=== PATIENT | female | born 1975 | race Caucasian/White ===

== ENCOUNTER 2019-04-08 12:30 | Emergency (ER) | payer BC ==
[~2019-04-08] VITALS: Ht 157.5 cm; Wt 89.8 kg
[2019-04-08 13:04] LABS: BASOPHILS % (AUTO) 0.4 % (0-1); EOSINOPHILS # (AUTO) 0.1 X10'3 (0-0.9); EOSINOPHILS % (AUTO) 0.8 % (0-6); HEMOGLOBIN 14.5 g/dl (12.0-16.0); LYMPHOCYTES % (AUTO) 23.3 % (21-51); MEAN CORPUSCULAR HEMOGLOBIN 30.7 PG (27.0-31.0); MEAN CORPUSCULAR HGB CONC 33.9 g/dL (33.0-36.5); MEAN CORPUSCULAR VOLUME 90.6 FL (78-98); MEAN PLATELET VOLUME 9.5 FL (7.4-10.4); MONOCYTES # (AUTO) 0.5 X10'3 (0-0.9); NEUTROPHILS # (AUTO) 5.9 X10'3 (1.8-7.7); NEUTROPHILS % (AUTO) 69.5 % (42-75); PLATELET COUNT 254 X10'3 (140-440); RED BLOOD COUNT 4.74 X10'6 (4.20-5.60); RED CELL DISTRIBUTION WIDTH 13.3 % (11.5-14.5); WHITE BLOOD COUNT 8.5 X10'3 (4.5-11.0)
[2019-04-08 13:06] LABS: CLARITY,URINE CLEAR (Clear); COLOR,URINE YELLOW (Yellow); GLUCOSE, URINE NEGATIVE (Neg); KETONES,URINE NEGATIVE (Neg); LEUKOCYTE ESTERASE ,URINE NEGATIVE (Neg); NITRITES, URINE NEGATIVE (Neg); OCCULT BLOOD,URINE NEGATIVE (Neg); PH,URINE 6.5 (4.8-8.0); PROTEIN,URINE NEGATIVE (Neg); UA COLLECTION TYPE CLN CATCH MIDSTREAM; UROBILINOGEN,URINE 0.2 E.U/dL (0.2-1.0)
[2019-04-08 13:15] LABS: ALANINE AMINOTRANSFERASE 31 U/L (12-78); ALBUMIN 3.9 G/DL (3.4-5.0); ALBUMIN/GLOBULIN RATIO 1.1 (1.1-1.5); ALKALINE PHOSPHATASE 68 IU/L (46-116); ANION GAP 9 (8-16); ASPARTATE AMINO TRANSFERASE 22 U/L (10-37); BILIRUBIN,TOTAL 0.4 MG/DL (0.1-1.0); BLOOD UREA NITROGEN 13 MG/DL (7-18); BUN/CREATININE RATIO 18.1 (6.6-38.0); CALCIUM 8.4 MG/DL (8.5-10.1); CHLORIDE 102 MMOL/L (99-107); CREATININE 0.72 MG/DL (0.40-0.90); GLUCOSE 97 MG/DL (70-104); POTASSIUM 3.7 MMOL/L (3.5-5.1); SODIUM 137 MMOL/L (135-145); TOTAL CARBON DIOXIDE 26.1 MMOL/L (24-32); TOTAL PROTEIN 7.4 G/DL (6.4-8.2); eGFR 89 ML/MIN
[2019-04-08] MEDS ORDERED: ketorolac trometh inj. 60 MG/2 ML VIAL IM ONE (14:10)
[2019-04-08] MEDS ORDERED: BUTA-281 PO (15:17)
[2019-04-08 15:27] VITALS: BP 128/88
== END 2019-04-08 15:28 | disposition home or self-care (01) ==
LOC: ER 12:30
DX: R42 Dizziness and giddiness (principal); R51 Headache; Z90.49 Acquired absence of other specified parts of digestive tract; Z98.890 Other specified postprocedural states
CPT/HCPCS: 36415; 80053; 81003; 84484; 85025; 93005; 96372; 99284; J1885

== ENCOUNTER 2022-05-21 22:05 | Emergency (ER) | payer BC ==
[~2022-05-21] VITALS: Ht 160 cm; Wt 84.7 kg
[~2022-05-21 22:05] MED LIST: BUTA-281 PO
[2022-05-21 22:15] VITALS: BP 128/83
[2022-05-21 22:22] LABS: BASOPHILS % (AUTO) 0.4 % (0-1); EOSINOPHILS # (AUTO) 0.1 X10'3 (0-0.9); EOSINOPHILS % (AUTO) 0.8 % (0-6); HEMATOCRIT 44.1 % (35.0-45.0); LYMPHOCYTES # (AUTO) 1.8 X10'3 (1.1-4.8); LYMPHOCYTES % (AUTO) 17.6 % (21-51); MEAN CORPUSCULAR HEMOGLOBIN 30.7 PG (27.0-31.0); MEAN CORPUSCULAR HGB CONC 33.9 g/dL (33.0-36.5); MEAN CORPUSCULAR VOLUME 90.4 FL (78-98); MEAN PLATELET VOLUME 9.7 FL (7.4-10.4); MONOCYTES # (AUTO) 0.7 X10'3 (0-0.9); MONOCYTES % (AUTO) 6.9 % (2-12); NEUTROPHILS # (AUTO) 7.6 X10'3 (1.8-7.7); NEUTROPHILS % (AUTO) 74.3 % (42-75); PLATELET COUNT 282 X10'3 (140-440); RED BLOOD COUNT 4.87 X10'6 (4.20-5.60); WHITE BLOOD COUNT 10.2 X10'3 (4.5-11.0)
[2022-05-21 22:33] LABS: ALANINE AMINOTRANSFERASE 23 U/L (12-78); ALBUMIN 4.1 G/DL (3.4-5.0); ALBUMIN/GLOBULIN RATIO 1.3 (1.1-1.5); ALKALINE PHOSPHATASE 86 IU/L (46-116); ANION GAP 7 (8-16); ASPARTATE AMINO TRANSFERASE 16 U/L (10-37); BILIRUBIN,TOTAL 0.3 MG/DL (0.1-1.0); BLOOD UREA NITROGEN 16 MG/DL (7-18); CHLORIDE 102 MMOL/L (99-107); CREATININE 0.84 MG/DL (0.40-0.90); GLUCOSE 97 MG/DL (70-104); POTASSIUM 3.7 MMOL/L (3.5-5.1); SODIUM 139 MMOL/L (135-145); TOTAL CARBON DIOXIDE 29.6 MMOL/L (24-32); TOTAL PROTEIN 7.3 G/DL (6.4-8.2); eGFR 73 ML/MIN
[2022-05-21 22:41] LABS: MAGNESIUM 2.2 MG/DL (1.5-2.4)
== END 2022-05-22 02:39 | disposition left against medical advice (07) ==
LOC: ER 22:06
DX: R06.02 Shortness of breath (principal); R07.89 Other chest pain; Z53.21 Procedure and treatment not carried out due to patient leaving prior to being seen by health care provider
CPT/HCPCS: 36415; 71045; 80053; 83735; 83880; 84484; 85025; 93005

== ENCOUNTER 2025-02-05 03:44 | Emergency (ER) | payer BC ==
[~2025-02-05] VITALS: Ht 160 cm; Wt 70.0 kg
[~2025-02-05 03:44] MED LIST changes: +BUTA-245 PO; -BUTA-281 PO
[2025-02-05 03:54] VITALS: TEMP 97.4
--- NOTE | 2025-02-05 08:26 | Physician Documentation ---
History of Present Illness ~ Chief Complaint: Abnormal Stools Stated Complaint: FECAL WORMS Time Seen by MD: 08:12 Source: patient Mode of Arrival: POV, Ambulatory Exam Limitations: no limitations HPI Chief Complaint: Worms in stool Caveat: None Independent Historians: None History of Present Illness: Patient is a 50-year-old woman who comes in complaining of having some abdominal cramps for approximately a week. Patient noticed that she believes she has seen larva or worms in her stool. Patient also thought she salt some worms in her left eye. She states that she was seen three dimensional in the left eye and then she looked with a high definition magnifying glass or mirror and thought she saw some small microscopic worms in her left eye. Patient states that she has been to [facility] twice. First time she when she said she had left-sided body numbness. They did a head CT that was negative. Review of systems: All systems were reviewed and are negative except for what is indicated in the history of present illness. Past Medical History: None Past Surgical History: None Social History: No tobacco use, denies drug use, occasional alcohol use Medications: Reviewed as documented Nursing Notes Allergies: Reviewed as documented in Nursing Notes Medication Reconciliation Allergies: Coded Allergies: No Known Allergies (Unverified , 02/05/25) Scheduled PRN Butalb/Acetaminophen/Caffeine (Fioricet Tab), 1 EACH PO Q6H PRN for pain Past Medical History Past Medical History: No Pertinent History Past Surgical History: appendectomy, other Drug Use: none Lives In: Home Review of Systems All Other Systems at this time: Reviewed and Negative ROS Patient denies any other acute symptoms other than above. All other systems are negative Physical Exam Vital Signs: RN Vital Signs have been reviewed: Yes, Temperature: 97.4, Source: Temporal, Heart Rate: 70, Respiratory Rate: 16, BP: 120/77, Pulse Oximetry: 99, Weight: 70.000 Oxygen Flow Rate: 0 Pulse Oximetry Reflects: adequate oxygenation Physical Exam General Appearance: No distress, patient is sleeping, patient arousable HEENT: Normal OP, moist oral mucosa, PERRL, EOMI Neck: supple, normal ROM, trachea midline Pulmonary: No respiratory distress, CTA, BS equal Cardiac: RRR, no murmur, rub or gallop, GI: nondistended, soft, nontender, normal bowel sounds, no guarding, no rebound Rectal: No masses, no evidence of parasites are worms, no stool in the rectal vault, guaiac negative, controls appropriate. Extremities: normal ROM, no swelling, non-tender Skin: intact, dry, warm, no rashes Neuro: AAOx3, speech is clear, no focal motor weakness Psych: normal affect, good eye contact, no apparent hallucination, normal speech Progress Results/Orders Results/Orders Orders - MICKEY HODGSON MD Occult Bld Stool (02/05/25 08:56) Completed Orders - MICKEY HODGSON MD Cbc/Diff (02/05/25 08:20) CMP (02/05/25 08:20) Vital Signs 02/05/25 02/05/25 02/05/25 02/05/25 03:54 05:42 05:42 08:44 Temp 97.4 Pulse 98 70 69 Resp 18 16 18 15 B/P (MAP) 121/68 120/77 (91) 142/99 (113) Pulse Ox 100 99 100 O2 Flow Rate 0 0 02/05/25 10:08 Pulse 80 Resp 14 B/P (MAP) 122/78 Pulse Ox 100 Laboratory Tests Test 02/05/25 08:30 02/05/25 08:56 White Blood Count 5.5 Red Blood Count 4.48 Hemoglobin 13.4 Hematocrit 39.3 Mean Corpuscular Volume 87.7 Mean Corpuscular Hemoglobin 30.0 Mean Corpuscular Hemoglobin Concent 34.2 Red Cell Distribution Width 12.7 Platelet Count 318 Mean Platelet Volume 8.1 Neutrophils (%) (Auto) 55.0 Lymphocytes (%) (Auto) 35.3 Monocytes (%) (Auto) 7.6 Eosinophils (%) (Auto) 1.4 Basophils (%) (Auto) 0.7 Neutrophils # (Auto) 3.1 Lymphocytes # (Auto) 2.0 Monocytes # (Auto) 0.4 Eosinophils # (Auto) 0.1 Basophils # (Auto) 0.0 CBC Comment Sodium Level 141 Potassium Level 3.9 Chloride Level 105 Carbon Dioxide Level 31.3 Anion Gap 5 L Blood Urea Nitrogen 12 Creatinine 0.86 Estimated GFR/1.73 m2 70 BUN/Creatinine Ratio 14.0 Glucose Level 94 Calcium Level 8.6 Total Bilirubin 0.6 Aspartate Amino Transf (AST/SGOT) 14 Alanine Aminotransferase (ALT/SGPT) 22 Alkaline Phosphatase 65 Total Protein 6.4 Albumin 3.5 Globulin 2.9 Albumin/Globulin Ratio 1.2 Chemistry Comments Medical Decision Making Findings Differential diagnosis includes but is not limited to: Parasites, delusional parasitosis Laboratory data independent interpretation: CBC: Unremarkable CMP: Unremarkable Emergency department course/medical decision-making: Patient states that she has worms in her stool. Patient has a stool sample from two days ago that she refrigerated and showed to me. However I can not identify any clear parasites are stools. Patient is requested that she give us a fresh stool sample. Patient is unable to provide us with a stool sample. Patient states that she has had traveled to [place] 3 times a last six months. Patient has no evidence of eosinophilia on her CBC differential. Patient has no evidence of medical or surgical emergency. Patient is instructed to follow up with the primary care doctor to provide a stool specimen for evaluation. Patient is stable for discharge. Departure Time of Disposition: 09:51 Disposition: 01 HOME / SELF CARE / HOMELESS Impression: Primary Impression: Abdominal pain of unknown cause Condition: Stable Discharge Instructions: Abdominal Pain, Adult, [id number] Additional Instructions: FOLLOW UP WITH YOUR PRIMARY CARE DOCTOR. RETURN IF YOUR SYMPTOMS WORSEN. Referrals: [facility] Education Educated: Patient Educated regarding: diagnosis, treatment, need for follow up Signature Scribe Signature: NO SCRIBE Attestation: NO SCRIBE MICKEY HODGSON MD Feb 05, 2025 08:26
[2025-02-05 08:50] LABS: CREATININE 0.86 MG/DL (0.40-0.90); TOTAL CARBON DIOXIDE 31.3 MMOL/L (24-32); eCRCL 66 ML/MIN; eGFR 70 ML/MIN
[2025-02-05 08:51] LABS: MEAN PLATELET VOLUME 8.1 FL (7.4-10.4); RED CELL DISTRIBUTION WIDTH 12.7 % (11.5-14.5)
[2025-02-05 10:08] VITALS: BP 122/78; PULSE 80; RESP 14; O2SAT 100
[2025-02-05 11:15] LABS: OCCULT BLOOD STOOL NEGATIVE (Neg)
== END 2025-02-05 10:15 | disposition home or self-care (01) ==
LOC: ER 03:46
DX: R10.9 Unspecified abdominal pain (principal); Z90.49 Acquired absence of other specified parts of digestive tract
CPT/HCPCS: 36415; 80053; 82272; 85025; 99283

== ENCOUNTER 2025-03-05 16:51 | Emergency (ER) | payer BC ==
[~2025-03-05] VITALS: Ht 160 cm; Wt 61.9 kg
--- NOTE | 2025-03-05 16:59 | Physician Documentation ---
History of Present Illness Stated Complaint: ABDOMINAL PAIN [facility] [age] year female presents for lower abdominal pain. She tells me that over the past 3 days she has been having pain across her lower abdomen. She states it is on both sides, with no radiation to her upper abdomen or back. She denies any fevers, nausea or vomiting, or significant diarrhea. She has been a little bit constipated. She then tells me that she thinks that she has worms in her stool. She also tells me she has worms coming out of her face and mouth. She saw a black fly, out of her mouth. She tells me she has videos of this. Tells me she did have stool samples down about a week ago, but does not know the results yet. She has not had any abdominal imaging recently. She does report some vaginal discharge that she states is green. She did have a recent pelvic exam that showed possible cervical cancer. She thinks she may have been exposed to STI. Medication Reconciliation Allergies: Coded Allergies: No Known Allergies (Unverified , 03/05/25) Scheduled Albendazole (Albendazole), 400 MG PO ONCE Doxycycline Hyclate (Doxycycline Hyclate), 1 CAP PO Q12H Metronidazole* (Flagyl*), 1 TAB PO Q12H Scheduled PRN Butalb/Acetaminophen/Caffeine (Fioricet Tab), 1 EACH PO Q6H PRN for pain Past Medical History Past Medical History: No Pertinent History Past Surgical History: appendectomy, other Drug Use: none Lives In: Home Review of Systems ROS As stated above in the HPI, otherwise all systems are reviewed and negative. Constitutional: Denies: fever Gastrointestinal: Reports: abdominal pain, constipated; Denies: vomiting Physical Exam Physical Exam General: This is a anxious appearing middle-aged woman, son at bedside HEENT: Atraumatic, oropharynx is moist, no significant lesions in the mouth. The patient does have several pimple type lesions around her mouth on the face Heart: Mild tachycardic, appears regular Lungs: normal work of breathing, normal oxygen saturation on room air Abdomen: Soft, nondistended, mild discomfort on palpation across the lower abdomen, without rebound or guarding Neuro: Alert and oriented Psychiatric: Appears mildly anxious, but is cooperative. Progress EKG/XRAY/CT/US/VASC/MRI CT : Impression I personally interpreted the CT scan, and this shows constipation and abnormal enhancement of the uterus Medical Decision Making Additional information obtaine: old records Findings Patient was last seen in this emergency department on 02/05/2025 due to concern for fecal warmth. Labs were normal at that time. No urinalysis was done. Patient was diagnosed with parasitosis, delusional. Differential Dx:Considerations: Appendicitis, Bowel obstruction, Constipation, Diverticular disease, Inflammatory BD, Ovarian cyst/torsion, PID, Urinary tract infection Additional Comments The patient presents with 3 days of lower abdominal pain, along with reported worms in her stool and worms coming out of the skin on her face. 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 However, today she also reports lower abdominal pain. She later reports vaginal discharge and possible exposure to STI. Her laboratory testing is unremarkable. CT scan shows possible abnormality of the uterus. I was concerned for possible PID. I did recommend a pelvic exam, but she declined. Instead after shared decision-making conversation, we will treat her with antibiotics for pelvic inflammatory disease. She has follow up next week for further evaluation of her cervix and they can recheck her infection. At her request she was also given a dose of albendazole for possible parasites. There was no evidence of definite parasites, but this seems reasonable. Return precautions given. Departure Time of Disposition: 20:58 Disposition: HOME / SELF CARE / HOMELESS Impression: Primary Impression: PID (acute pelvic inflammatory disease) Condition: Stable Discharge Instructions: Pelvic Inflammatory Disease Referrals: NO PRIMARY CARE PROVIDER (PCP) Prescriptions Albendazole (Albendazole) 200 Mg Tablet 400 MG PO ONCE for 1 Day, #2 TAB 0 Refills Prov: NICOLE MARLEY MD 03/05/25 Doxycycline Hyclate (Doxycycline Hyclate) 100 Mg Capsule 1 CAP PO Q12H for 14 Days, #27 CAP Prov: NICOLE MARLEY MD 03/05/25 Metronidazole* (Flagyl*) 500 Mg Tablet 1 TAB PO Q12H for 14 Days, #27 TAB Prov: NICOLE MARLEY MD 03/05/25 Education Educated: Patient Educated regarding: diagnosis, treatment, need for follow up Signature Scribe Signature: x Attestation: The note accurately reflects work and decisions made by me.Irena Stover NP 03/05/25 16:59 IRENA ELLINGTON NP Mar 05, 2025 16:59 NICOLE MARLEY MD Mar 05, 2025 19:33
[2025-03-05] MEDS ORDERED: iohexol 300mg/ml 100ml inj. ONE (19:12)
[2025-03-05 19:15] LABS: MEAN PLATELET VOLUME 8.7 FL (7.4-10.4); RED CELL DISTRIBUTION WIDTH 13.1 % (11.5-14.5)
[2025-03-05 19:32] LABS: CREATININE 0.70 MG/DL (0.40-0.90); TOTAL CARBON DIOXIDE 31.8 MMOL/L (24-32); eCRCL 81 ML/MIN; eGFR 89 ML/MIN
--- NOTE | 2025-03-05 20:30 | RADIOLOGY REPORT ---
Exam: CT CT ABDOMEN PELVIS W/ IV CONTRAST History: lower abd pain Comparison Study: None TECHNIQUE: Multidetector CT of the abdomen and pelvis with IV contrast. Axial, coronal and sagittal multiplanar reformats were obtained from the axial data set by the technologist. Radiation Dose Information: CT Dose: CTDI volume is 5.45 mGy. Dose-length product is 239.5 mGy*cm FINDINGS: Right basilar atelectasis. Partially visualized heart is unremarkable. Liver, spleen, gallbladder, pancreas and right adrenal gland are unremarkable. Mild hyperplasia of the left adrenal gland. Kidneys, ureters and urinary bladder are unremarkable. Intrauterine device is noted in place. Heterogeneous appearance of the uterus. Limited evaluation of bilateral adnexa. Stomach is mildly distended. Otherwise, unremarkable. Mild wall thickening Small bowel loops within the left hemiabdomen. The remainder of the small bowel loops are fluid-filled and nondistended. Appendix is not definitely visualized. Without visualization of the appendix, can not exclude acute appendicitis. Moderate to large amount of fecal material within the colon. No evidence of intraperitoneal free air or free fluid. No evidence of aortic aneurysm or dissection. No significant lymphadenopathy. The soft tissues are unremarkable. No evidence of acute osseous abnormalities. IMPRESSION: Mild wall thickening of small-bowel loops within the left hemiabdomen with with the remainder of the small bowel loops fluid-filled and nondistended. Correlate for enteritis. Moderate to large amount of fecal material within the colon. Heterogeneous appearance of the uterus with an intrauterine device noted in place.
[2025-03-05] MEDS ORDERED: DOXY-224 PO (20:59)
[2025-03-05] MEDS ORDERED: METR-159 PO (20:59)
[2025-03-05] MEDS ORDERED: ALBE200T10 PO (21:01)
[2025-03-05] MEDS: DOXYCYCLINE 100MG CAPSULE PO STA (21:09)
[2025-03-05] MEDS: CefTRIAXone 1000mg IM Kit (w/lidocaine diluent) IM ONE (21:09)
[2025-03-05 21:13] VITALS: BP 120/79; PULSE 77; RESP 17; TEMP 98.5; O2SAT 99
== END 2025-03-05 21:28 | disposition home or self-care (01) ==
LOC: ER 16:51
DX: N73.0 Acute parametritis and pelvic cellulitis (principal); K59.00 Constipation, unspecified; Z90.49 Acquired absence of other specified parts of digestive tract; Z79.899 Other long term (current) drug therapy
CPT/HCPCS: 36415; 74177; 80053; 83690; 85025; 96372; 99285; J0696; Q9967

== ENCOUNTER 2025-04-07 23:57 | Emergency (ER) | payer BC ==
[~2025-04-07] VITALS: Ht 160 cm; Wt 63.0 kg
[~2025-04-07 23:57] MED LIST changes: +ALBE200T10 PO
[2025-04-08 00:01] VITALS: BP 156/56; PULSE 92; RESP 15; TEMP 96.3; O2SAT 99
--- NOTE | 2025-04-08 00:36 | Physician Documentation ---
History of Present Illness General Chief Complaint: See Chief Complaint Stated Complaint: FEELING SICK Time Seen by MD: 00:36 History of Present Illness Initial Comments This is a 50-year-old female who presents reporting I have been expressing fish eggs from my vagina onto my thighs where they grow and watson" patient reports this often causes her to stiff in her neck and she is having concerns that I am hemorrhaging larva and flies for my eyes. Patient presents a empty zip lock bag that she reports contains eggs though the bag is in fact empty. Patient reports that she has videos of these but can not locate them. Patient reports symptoms present for four months. Reports no illicit drug use, though after some further questioning patient does report occasional cocaine use. On Further questioning patient reports that she coughed a parasite up, when asked how long she has been coughing for patient reports "I have not been coughing. Patient additionally reports seeing larva come from my skin, patient reports discussing concerns with a tele doc but he could not see anything. Patient reports no suicidal ideation or homicidal ideation, patient reports no previous history of mental health diagnosis. Medication Reconciliation Allergies: Coded Allergies: No Known Allergies (Unverified , 04/08/25) Scheduled Albendazole (Albendazole), 400 MG PO ONCE Scheduled PRN Butalb/Acetaminophen/Caffeine (Fioricet Tab), 1 EACH PO Q6H PRN for pain Past Medical History Past Medical History: No Pertinent History Past Surgical History: appendectomy, other Drug Use: none Lives In: Home Review of Systems ROS As stated above in the HPI, otherwise all systems are reviewed and negative. Physical Exam Physical Exam Vital Signs: Temperature: 96.3, Source: Temporal, Heart Rate: 92, Respiratory Rate: 15, BP: 156/56, Pulse Oximetry: 99, Weight: 63.000 Physical Exam VITALS: Reviewed and as above. GENERAL: Alert, nontoxic appearing, no apparent distress. HEENT: Facial swelling, no visible injuries to face RESPIRATORY: No increased work of breathing, no respiratory distress, speaking in full clear sentences NEURO: GCS 15 SKIN: Several small areas of mild excoriations to lower extremities bilaterally and hands bilaterally, several small scabs to lower extremities PSYCH: Bizarre mood and affect, making no statements of HI or SI Progress Results/Orders Results/Orders Vital Signs 04/08/25 00:01 Temp 96.3 Pulse 92 Resp 15 B/P (MAP) 156/56 Pulse Ox 99 Medical Decision Making Additional information obtaine: N/A Findings MSE performed in triage and patient returned to ED lobby by nursing staff to await available ED room, I question patient further in triage room two and after discussing patient's possible need for a mental health provider as I did not see any evidence of parasites on her skin or in the bag she provided patient became agitated I asked patient to wait in the ED lobby, at this point patient walked out of the emergency department before further assessment. Eloped from lobby. I have no reasonable believe that a emergent medical condition exists at this time and it was reassuring patient reported no suicidal ideation or homicidal ideation and appeared well and appear to have the ability to care for herself therefore did not meet the criteria for 1799 hold. Differential Diagnosis Abscess, cellulitis, substance use, sec absence intoxication, suicidal ideation, homicidal ideation, psychosis, delusional, delusions of grandeur, bipolar disorder, depression, anxiety Departure Disposition: 07 LEFT AWOL/ELOPED Impression: Primary Impression: Delusions of parasitosis Referrals: NO PRIMARY CARE PROVIDER (PCP) Signature Scribe Signature: No scribe Attestation: The note accurately reflects work and decisions made by me.GLORIA Guaman 04/08/25 00:55 SUJEY MITCHELL Apr 08, 2025 00:36
[2025-04-09] MEDS ORDERED: CYCL-1 PO (17:46)
== END 2025-04-08 01:02 | disposition left against medical advice (07) ==
LOC: ER 23:58
DX: F22 Delusional disorders (principal); Z90.49 Acquired absence of other specified parts of digestive tract
CPT/HCPCS: 99282

== ENCOUNTER 2025-04-09 12:17 | Emergency (ER) | payer BC ==
[~2025-04-09] VITALS: Ht 157.5 cm; Wt 64.0 kg
[2025-04-09] MEDS: ketorolac trometh 15mg/ml vial 15 MG/ML ML IM ONE (14:22)
--- NOTE | 2025-04-09 17:05 | RADIOLOGY REPORT ---
CLINICAL HISTORY: Pelvic pain, urine retention, adexna not well visualized on last CT COMPARISON: Correlation made to CT of the abdomen and pelvis dated 03/05/2025. TECHNIQUE: Transvaginal and transabdominal grayscale sonographic imaging of the uterus and ovaries was performed, assisted by color Doppler technique. Duplex Doppler ultrasound of both ovaries was also performed with color flow and spectral waveform analysis. FINDINGS: The uterus measures 9.3 x 5.8 x 7.5 cm. There is heterogeneous echogenicity. Endometrial thickness measures 0.6 cm, which would be within normal limits if the patient is premenopausal. IUD within the fundal endometrial canal, in expected position. There are 2 hypoechoic masses in the uterus m easuring 3.4 x 3.1 x 2.6 cm and 3.5 x 2.8 x 2.7 cm, respectively. No free fluid visualized in the cul-de-sac. Right ovary measures 3.0 x 1.9 x 2.0 cm. Arterial and venous blood flow demonstrated. Left ovary measures 2.9 x 1.4 x 1.9 cm. Arterial and venous blood flow demonstrated. IMPRESSION: 1. Heterogeneous fibroid uterus as described above. 2. IUD in expected position at the fundal endometrial canal. 3. No sonographic evidence of ovarian torsion.
--- NOTE | 2025-04-09 17:39 | Physician Documentation ---
History of Present Illness ~ Chief Complaint: Neck pain Stated Complaint: NECK PAIN Time Seen by MD: 12:31 OK to notify your PCP?: Yes Source: patient Mode of Arrival: EMS, Stretcher Exam Limitations: no limitations HPI Reports having left-sided neck pain which extends up into the head causing a headache. She reports that this has been going on for the past month but is worse today. She denies any falls or trauma to that area. She denies any chest pain, shortness of breath, nausea, vomiting. She reports that she was seen at [facility] on 03/31/2025 and received a stroke workup. There was no history of CVA or TIA. Reports that the CT scan that they did was normal and then she did speak to a neurologist there which was normal and had an outpatient MRI which she has not followed up with a regular doctor Dr. Anthony but the results are not available to review. Reports she was able to see them on her portal and it looked normal. She was seen here a couple of days ago for abnormal complaints and diagnosed with delusions of parasitosis for which she eloped the department. She denied any SI or HI at that time and did not meet criteria for 799 hold. Today she denies any SI or HI and is able to take care of herself. She does not meet any criteria 1st temperature 99 hold today. She is unsure what type of bug infestation is in her home. Reports that she has been having trouble with her vision in her left eye for the past month and saw a eye doctor this week and was prescribed a cream to use but she has yet to pick this up from the pharmacy. Reports she was here a month ago and had a CT of her abdomen as she has been feeling bloated and having trouble with urination. She reports that it was normal except for the uterus was not seen very well and she would like to get that looked at today. Denies drug or alcohol use today. Medication Reconciliation Allergies: Coded Allergies: No Known Allergies (Unverified , 04/09/25) Scheduled Albendazole (Albendazole), 400 MG PO ONCE Cyclobenzaprine* (Cyclobenzaprine*), 1 TAB PO Q8H Scheduled PRN Butalb/Acetaminophen/Caffeine (Fioricet Tab), 1 EACH PO Q6H PRN for pain Past Medical History Past Medical History: No Pertinent History Past Surgical History: appendectomy, other Smoking Status: Current every day smoker Drug Use: none Lives In: Home Review of Systems All Other Systems at this time: Reviewed and Negative Physical Exam Vital Signs: RN Vital Signs have been reviewed: Yes, Temperature: 97.8, Source: Oral, Heart Rate: 90, Respiratory Rate: 14, BP: 120/88, Pulse Oximetry: 100, Weight: 64.000 Oxygen Flow Rate: 0 Pulse Oximetry Reflects: adequate oxygenation Physical Exam General: Alert, no apparent distress. HEENT: PERRL, EOMI, no injection, moist mucous membranes. Neck: Full range of motion. Tenderness to palpation and muscle spasm of left trapezius muscle extending into the neck. Respiratory: Lungs clear, no respiratory distress. Chest: No accessory muscle use. Cardiovascular: Regular rate and rhythm, no murmurs. Gastrointestinal: Soft, nontender, nondistended. Bowels sounds present. Extremities: Normal range of motion, no deformity. Neurologic: Oriented x4. Normal gait. Psychiatric: Normal mood and affect. Skin: Normal color, warm and dry. No edema, no ecchymosis. Progress Results/Orders Reviewed/noted all lab results: Yes Results/Orders Medications Received in ER Medications (Trade) Dose Ordered Sig/Scooter Route PRN Reason Start Time Stop Time Status Last Admin Dose Admin (Toradol injection) 15 mg ONCE ONCE IM 04/09/25 13:55 04/09/25 13:58 DC 04/09/25 14:22 15 MG (Benadryl inj.) 25 mg ONCE ONCE IM 04/09/25 14:45 04/09/25 14:46 DC 04/09/25 15:07 25 MG (Flexeril tablet) 10 mg ONCE ONCE PO 04/09/25 15:50 04/09/25 15:51 DC 04/09/25 15:57 10 MG Vital Signs 04/09/25 04/09/25 04/09/25 04/09/25 12:22 12:34 14:00 14:22 Temp 97.8 Pulse 92 88 Resp 18 16 16 16 B/P (MAP) 121/78 121/86 (98) Pulse Ox 99 99 O2 Flow Rate 0 0 04/09/25 04/09/25 04/09/25 14:30 15:07 17:00 Pulse 105 84 90 Resp 16 16 14 B/P (MAP) 135/86 (102) 110/54 (72) 120/88 (99) Pulse Ox 99 97 100 O2 Flow Rate 0 0 0 EKG/XRAY/CT/US/VASC/MRI Ultrasound : Impression Pelvic Ultrasound as interpreted by me shows: no ovarian torsion, IUD in expected position, two uterine hypoechoic masses likely fibroids. No free fluid visualized. Medical Decision Making Additional information obtaine: old records Findings Ordered Toradol and Benadryl as part of the migraine cocktail. Also gave Flexeril for left-sided trapezius muscle spasm. Did ultrasound of pelvis to rule out any masses that were not seen on prior CT. Ultrasound shows that there are 2 fibroids in the uterus and there is an IUD in place. Physical exam is unremarkable. Vital signs have been stable. Patient advised to follow up with her primary care provider. Reviewed records from previous visits here as well as the ER visit from [facility] in [place]. Head MRI results not for review. I discussed various tests that we can do in the ER such as to repeat her head CT or check some lab work but patient declined. She reports that she does not want to repeat tests that were already done and were normal. Requesting an pelvic ultrasound which we did today since abdominal CT results were unclear last month. She expressed some relief of her neck pain after the Flexeril so I sent her with a prescription for more. We discussed that I am unsure of the reason for her chronic headache but her neuro exam is normal and repeat imaging was declined. Differential Dx:Considerations: Include: ROGERS-Cluster, ROGERS-Migraine, ROGERS- Hypertensive, ROGERS-Muscular contraction, CVA, Hemorrhage-Epidural, Hemorrhage- Intracerebral, Hemorrhage-Subarachnoid, Hemorrhage-Subdural, Mass lesion, Meningitis Departure Disposition: 01 HOME / SELF CARE / HOMELESS Impression: Primary Impression: Neck pain Additional Impression: Abdominal pain of unknown cause Condition: Stable Discharge Instructions: Cervical Sprain Additional Instructions: Please follow up with her primary care provider within the next week and return back here for any new or worsening symptoms. Please share these ultrasound results with your primary care provider. You have been provided with a list of local primary care providers. Ultrasound report shows: FINDINGS: The uterus measures 9.3 x 5.8 x 7.5 cm. There is heterogeneous echogenicity. Endometrial thickness measures 0.6 cm, which would be within normal limits if the patient is premenopausal. IUD within the fundal endometrial canal, in expected position. There are 2 hypoechoic masses in the uterus measuring 3.4 x 3.1 x 2.6 cm and 3.5 x 2.8 x 2.7 cm, respectively. No free fluid visualized in the cul-de-sac. Right ovary measures 3.0 x 1.9 x 2.0 cm. Arterial and venous blood flow demonstrated. Left ovary measures 2.9 x 1.4 x 1.9 cm. Arterial and venous blood flow demons trated. IMPRESSION: 1. Heterogeneous fibroid uterus as described above. 2. IUD in expected position at the fundal endometrial canal. 3. No sonographic evidence of ovarian torsion. Referrals: NO PRIMARY CARE PROVIDER (PCP) Prescriptions Cyclobenzaprine* (Cyclobenzaprine*) 10 Mg Tablet 1 TAB PO Q8H for muscle spasms for 10 Days, #30 TAB 0 Refills Prov: SHELBY PANTOJAP 04/09/25 Education Educated: Patient Educated regarding: diagnosis, treatment, prognosis, need for follow up Additional Comment Medical Screen Exam This patient recieved a medical screening examination. After reviewing the individual's medical complaints with presenting symptoms and performing an appropriate physical examination, it was determined that no immediate life-thre atening emergency medical condition is present. This individual is also not a women having contractions. I have reviewed this case [id number] with the LOCKSTITCH LINING MAKER, including physical examination, laboratory and imaging results as appropriate. The patient was evaluated [id number] and I agree with the LOCKSTITCH LINING MAKER's notes. I agree with the findings, evaluation and disposition. Signature Scribe Signature: . Attestation: Scribed for Shelby Pantoja Slide Machine Tender by Shelby Stover NP . 04/09/25 17:48 Parts of this note were created using [employer] voice recognition software program. While efforts were made to correct any mistakes made by this voice recognition software program, nonsensical phrases may remain in this note. In addition, there may be errors and syntax, grammar, content and spelling. SHELBY PANTOJA Apr 09, 2025 17:39 MAGALI BROWN MD Apr 09, 2025 18:36
[2025-04-09] MEDS ORDERED: CYCL-1 PO (17:46)
[2025-04-09 19:40] VITALS: BP 122/84; PULSE 97; RESP 16; TEMP 97.8; O2SAT 100
== END 2025-04-09 19:51 | disposition home or self-care (01) ==
LOC: ER 12:18
DX: M54.2 Cervicalgia (principal); R51.9 Headache, unspecified; F17.200 Nicotine dependence, unspecified, uncomplicated; Z90.49 Acquired absence of other specified parts of digestive tract
CPT/HCPCS: 51798; 76830; 76856; 93976; 96372; 99285; J1200; J1885; C1758; Q0163